=== PATIENT | female | born 1965 | race Caucasian/White ===

== ENCOUNTER 2016-11-11 03:18 | Emergency (ER) | payer MEDICAID ==
[2016-11-11] MEDS ORDERED: Sodium Chloride 0.9% 1,000 ML IV ONE (03:40)
--- NOTE | 2016-11-11 03:47 | ED Physician Chart ---
Chief Complaint/HPI - Patient Information Date Seen:: 11/11/16 Time Seen:: 03:41 Chief Complaint:: l flank pain History of Present Illness:: this pt arrives at 330am w her friend. they say they dont like drs. she is here for pain in l side x 1 week which is somewhat worse now. l side of bellly is sore and worse w mvt. 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 pt denies any pain med hx and says she hasnt seen a dr x 2 yrs. she has DM and has been noncompliant w meds...tries to ctrl her diet. no fever. no urine or b, change. no constipation. eats well. no back pain. pos smoker/doesnt drink or use drugs. pt lives in [place] but says she is visiting a friend out here Allergies:: Allergies Allergy/AdvReac Type Severity Reaction Status Date / Time No Known Allergies Allergy Verified 11/11/16 03:30 Vitals:: Vital Signs - 8 hr 11/11/16 03:31 Temp 97.8 F HR 103 RR 19 BP 168/98 O2 Sat % 98 Historian:: Patient, Friend Review of Systems - Review of Systems General/Constitutional: No fever, No chills, No weight loss, No weakness, No diaphoresis, No edema, No loss of appetite Skin: No skin lesions, No rash, No bruising Head: No headache, No light-headedness Eyes: No loss of vision, No pain, No diplopia ENT: No earache, No nasal drainage, No sore throat, No tinnitus Neck: No neck pain, No swelling, No thyromegaly, No stiffness, No mass noted Cardio Vascular: No chest pain, No palpitations, No PND, No orthopnea, No edema Pulmonary: No SOB, No cough, No sputum, No wheezing GI: No nausea, No vomiting, No diarrhea, No pain, No melena, No hematochezia, No constipation, No hematemesis G/U: No dysuria, No frequency, No hematuria Musculoskeletal: No bone or joint pain, No back pain, No muscle pain, Other (l flank pain) Endocrine: No polyuria, No polydipsia Psychiatric: No prior psych history, No depression, No anxiety, No suicidal ideation Hematopoietic: No bruising, No lymphadenopathy Allergic/Immuno: No urticaria, No angioedema Neurological: No syncope, No focal symptoms, No weakness, No paresthesia, No headache, No seizure, No dizziness, No confusion, No vertigo Past Medical History - Past Medical History Past Medical History: DM Social History: Smoker, No Alcohol, No Drug Use Medication: None Family Medical History - Family Member Father Hx Family Cancer: Yes (LUNG CA) Other Medical History: EMPHYSEMA Physical Exam - Physical Examination General/Constitutional: Awake, Well-developed, well-nourished, Alert, No distress, GCS 15, Non-toxic appearing, Ambulatory Head: Atraumatic Eyes: Lids, conjuctiva normal, PERRL, EOMI Skin: Nl inspection, No rash, No skin lesions, No ecchymosis, Well hydrated, No lymphadenopathy ENMT: External ears, nose nl, Nasal exam nl, Lips, teeth, gums nl Neck: Nontender, Full ROM w/o pain, No JVD, No nuchal rigidity, No bruit, No mass, No stridor Respiratory: Nl effort/Exclusion, Clear to Auscultation, No Wheeze/Rhonchi/Rales Cardio Vascular: RRR, No murmur, gallop, rubs, NL S1 S2 GI: No organomegaly, No hernia, Normal BS's, Nondistended, No mass/bruits, No McBurney tenderness Other GI comments:: vague tndr along left side abd/flank. no rash. no obv mass in abd. pos nabs. : No CVA tenderness Extremities: No tenderness or effusion, Full ROM, normal strength in all extremities, No edema, Normal digits & nails Neuro/Psych: Alert/oriented, DTR's symmetric, Normal sensory exam, Normal motor strength, Judgement/insight normal, Mood normal, Normal gait, No focal deficits Misc: normal gait, Normal back, No paraspinal tenderness Labs/Radiology/EKG Results - Lab Results Results: Laboratory Tests 11/11/16 11/11/16 11/11/16 03:52 03:52 03:52 WBC 7.9 RBC 5.34 H Hgb 14.4 Hct 43.5 MCV 81.4 MCH 26.9 L MCHC Differential 33.1 RDW 15.0 Plt Count 257 MPV 8.4 Neutrophils % 61.5 Lymphocytes % 26.6 Monocytes % 8.2 Eosinophils % 3.0 Basophils % 0.7 Sodium 131 L Potassium 3.7 Chloride 99 Carbon Dioxide 25.9 Anion Gap 9.8 BUN 11 Creatinine 0.7 Est GFR ( Amer) > 60.0 Est GFR (Non-Af Amer) > 60.0 BUN/Creatinine Ratio 15.7 Glucose 423 H Whole Bld Lactic Acid Calcium 9.4 Total Bilirubin 0.3 AST 12 L ALT 12 Alkaline Phosphatase 87 Troponin I < 0.01 L Total Protein 7.1 Albumin 3.8 Globulin 3.3 Albumin/Globulin Ratio 1.2 Lipase 11/11/16 11/11/16 03:52 03:52 WBC RBC Hgb Hct MCV MCH MCHC Differential RDW Plt Count MPV Neutrophils % Lymphocytes % Monocytes % Eosinophils % Basophils % Sodium Potassium Chloride Carbon Dioxide Anion Gap BUN Creatinine Est GFR ( Amer) Est GFR (Non-Af Amer) BUN/Creatinine Ratio Glucose Whole Bld Lactic Acid 1.60 Calcium Total Bilirubin AST ALT Alkaline Phosphatase Troponin I Total Protein Albumin Globulin Albumin/Globulin Ratio Lipase 24 - Radiology Results Results: cxr nad ct abd/p- left renal cysts, cholelithiasis, 3cm l adnexal cyst w layered hyperdense material (endometrioma or hemorrhagic cyst...mild r hydrosalpinx), no ks. - EKG Interpretations EKG Time:: 03:40 Rhythm: nsr Solomon: 55 Rate: 100 Comments:: normal study/nad Assessment - Assessment General Assessment: labs reviewed w pt. discussed why DM w glucose routinely in 4-600mg range ( which pt reports she checks at home but does not address) is extremely dangerous for [facility].... dw pt need to get better glu ctrl... dw pt ct result and have ordered US pelivs ED Septic Shock - . Is Septic Shock (SBP<90, OR Lactate>4 mmol\L) present?: No - <6hrs of presentation: Vital Signs: Vital Signs - 8 hr 11/11/16 03:31 Temp 97.8 F HR 103 RR 19 BP 168/98 O2 Sat % 98 Reassessment (Disposition) - Reassessment Reassessment:: US CONFIRMS THAT THERE ARE MULT SIMPLE OVRIAN CYSTS. NO PID/SALPINX ETC. NO TORSION. DW PT RESULT. EXPLAINED HER DM NEEDS TX...WILL GIVE SHORT RX OF [id number] AND LISINOPRIL 10/D FOR DM AND HTN ...HOWEVER I EXPLAINED THAT THESE WILL NEED TO BE RECHKD BY DR TO INSURE DOSE IS CORRECT AND SOONER IS BETTER. ALSO SHE NEEDS TO SEE MEDICAL CERTIFICATION SPECIALIST THIS WEEK REGARDING THE OVARIAN CYSTS. NORCO 5S NO 15 FOR PAIN. MAY USE MOTRIN ALSO. PT IS TO FU W PMD PATEL. FSBS HAS IMPROVED TO 150 AFTER INSULIN 8U SQ IN ED Reassessment Condition:: Improved - Diagnosis Diagnosis:: 1 LEFT FLANK PAIN 2NDARY TO OVARIAN CYSTS 2 UNCONTROLLED DM TYPE 2 3 UNCONTROLLED HTN - Aftercare/Follow up Instructions Aftercare/Follow-Up Instructions:: Counseled pt & family regarding lab results/ diagnosis & need follow up - Patient Disposition Discharge/Transfer:: Home Condition at Disposition:: Improved ED Discharge Plan - Patient Disposition Instructions: Hyperglycemia, [id number], Ovarian Cyst, [id number], Hypertension, [id number] Additional Instructions: follow up with your primary medical doctor PATEL take prescribed medications as ordered
[2016-11-11] MEDS ORDERED: Morphine Sulfate 4 mg/mL 1mL Syr ONE (03:53)
[2016-11-11 04:06] LABS: % BASOPHILS 0.7 % (0.0-2.0); % LYMPHOCYTES 26.6 % (20.0-50.0); % MONOCYTES 8.2 % (2.0-10.0); % NEUTROPHILS 61.5 % (40.0-80.0); HEMATOCRIT 43.5 % (35.0-45.0); HEMOGLOBIN 14.4 gm/dL (11.7-15.5); MEAN CELL VOLUME 81.4 fl (81-100); MEAN CORPUSCULAR HEMOGLOBIN 26.9 pg (27.0-31.0); MEAN CORPUSCULAR HGB CONC 33.1 pg (28.0-36.0); MEAN PLATELET VOLUME 8.4 fl; NEUTROPHILE ABSOLUTE 4.9 Th/cmm (1.8-8.0); PLATELET COUNT 257 Th/cmm (150-400); RED BLOOD COUNT 5.34 Mil/cmm (3.80-5.10); WHITE BLOOD COUNT 7.9 Th/cmm (4.8-10.8)
[2016-11-11 04:15] LABS: ALB/GLOB RATIO 1.2 (1.0-1.8); ALKALINE PHOSPHATASE 87 U/L (34-104); ANION GAP 9.8 (7.0-16.0); BILIRUBIN,TOTAL 0.3 mg/dL (0.3-1.0); BUN - UREA NITROGEN 11 mg/dL (7-25); BUN/CREATININE RATIO 15.7; CALCIUM SERUM 9.4 mg/dL (8.6-10.3); CARBON DIOXIDE 25.9 mEq/L (21.0-31.0); CHLORIDE 99 mEq/L (98-107); CREATININE - SERUM 0.7 mg/dL (0.6-1.2); GLUCOSE 423 mg/dL (70-105); POTASSIUM SERUM 3.7 mEq/L (3.5-5.1); SGOT 12 U/L (13-39); SGPT/ALT 12 U/L (7-52); SODIUM SERUM 131 mEq/L (136-145)
[2016-11-11] MEDS ORDERED: INSULIN ASPART, RECOMBINANT 100 UNITS/ML SUBQ ONE ×2 (05:04→05:19)
[2016-11-11 06:37] LABS: URINE BILIRUBIN NEGATIVE (NEGATIVE); URINE BLOOD MODERATE (NEGATIVE); URINE COLOR YELLOW; URINE GLUCOSE (UA) 500 mg/dL (NEGATIVE); URINE KETONE NEGATIVE (NEGATIVE); URINE PROTEIN NEGATIVE (NEGATIVE); URINE UROBILINOGEN 0.2 E.U./dL (0.2 - 1.0)
[2016-11-11 06:39] LABS: URINE EPITHELIAL CELLS FEW /lpf (FEW); URINE WBC 0-2 /hpf (0-5)
[2016-11-11 06:40] LABS: URINE BACTERIA OCCASIONAL /hpf (NONE SEEN)
--- NOTE | 2016-11-11 10:18 | Diagnostic Imaging Report ---
Portable chest x-ray History: Pain Allowing for portable technique the heart size is normal. No focal pulmonary parenchymal processes. No hilar or mediastinal abnormalities. Impression: No acute abnormalities.
--- NOTE | 2016-11-11 12:01 | Diagnostic Imaging Report ---
CT scan abdomen and pelvis without intravenous contrast HISTORY: Pain Total DLP equals 445 CTDI equals 9.5 Axial sections were obtained from the xiphoid process down to the pubic symphysis. The liver exhibits a homogeneous parenchyma. No focal lesions. The spleen appears normal. Relatively large gallstones noted. No abnormality seen in the region of the pancreas. Findings consistent with bilateral renal cysts are seen. The exam of the pelvis demonstrates a rather markedly distended urinary bladder. There is an approximate 3.0 cm round complex lesion within the left adnexal area consistent with a fluid/fluid level. Findings may be associated with a hemorrhagic cyst. An approximate 1.0 cm cystic lesion is also noted in the right adnexal area no free fluid in the pelvis. IMPRESSION: 1. 3.0 cm complex left adnexal lesion with a fluid/fluid level. Findings may be associated with a hemorrhagic cyst. If needed, a pelvic ultrasound exam would provide additional characterization and assessment. Additional 1.0 cm right adnexal cyst also noted. 2. Rather distended urinary bladder 3. Cholelithiasis 4. Findings consistent with bilateral renal cysts.
--- NOTE | 2016-11-11 12:08 | Diagnostic Imaging Report ---
Pelvic ultrasound HISTORY: Mass. Transabdominal and transvaginal sonographic technique real utilized. There is an overall normal uterine size with a bulbous contour (9.5 x 5.1 x 6.8 cm). No focal myometrial lesions are seen. The endometrium appears normal (6 mm thickness). An approximate 3.5 x 2.7 cm complex probably cystic lesion is seen in the left adnexal area. Sonographic appearance is indeterminate. A follow-up exam would provide further assessment of a physiologic basis. An approximate 3.4 x 1.3 x 1.4 cm sonolucent cystic lesion appears to be situated adjacent to the right ovary. Findings suggest a tear ovarian cyst. Again, follow-up exam would provide assessment of physiologic basis. No free fluid in pelvis. IMPRESSION: 1. Left adnexal complex cystic lesion. Exact etiology is indeterminate. A follow-up exam in several weeks would provide assessment of a physiologic basis. 2. Right adnexal cystic lesion that appears adjacent to the ovary. Finding may represent a para ovarian cyst. Again, a follow-up exam would provide for further assessment. Above findings were communicated to the radiology Department/emergency department 11/11/2016 (12:05 PM).
== END 2016-11-11 07:00 | disposition home or self-care (01) ==
LOC: ER 03:18
DX: N83.202 Unspecified ovarian cyst, left side (principal); E11.9 Type 2 diabetes mellitus without complications; I10 Essential (primary) hypertension; F17.200 Nicotine dependence, unspecified, uncomplicated
CPT/HCPCS: 99285; 96361; 96372; 96374; 96375; 93005; 71010; 76856; 74176; 84484; 36415; 36416; 82948; 83605; 85025; 81001; 83036; 81025; 82010; 83690; 80053; J1815; J2405; J7030